=== PATIENT | male | born 1960 | race Caucasian/White ===

== ENCOUNTER → 2022-06-01 | Outpatient (CLI) | payer OTHER, SELFPAY ==
--- NOTE | 2022-06-01 11:00 | PROSBIL_PTH ---
PATIENT: MONIKA CAIN LOC: [facility] U#:[id number] AGE/SX: 61/M ROOM: RE06/01/[address]: Dr. Hussein Thomas MD : 1960 BED: DIS: 06/01/2022 SPEC #: [id number] RECD: 06/02/22 08:09 STATUS: ANA MARIA FATUMA #: [id number] GRISELDA: 06/01/22 11:[address]: Hussein Thomas DEPT: SURGICAL PATHOLOGY RECD BY: Brittany Lamb Tissues: A - PROSTATE RIGHT B - PROSTATE RIGHT C - PROSTATE RIGHT D - PROSTATE LEFT E - PROSTATE LEFT F - PROSTATE LEFT Procedures: PROSTATE BX HEADER OPERATION: Prostate biopsy PRE-OP DIAGNOSIS: R97.20 TISSUE SUBMITTED: A-Right apex, B-Right mid, C-Right base, D-Left apex, E-Left mid, F-Left base MICROSCOPIC DIAGNOSIS A- Prostate, right apex, core biopsy: Prostatic adenocarcinoma. Mohinder grade: 3+3 =6 Number of cores involved: 1/1 Proportion of tissue involved: 80 % Perineural invasion: Not identified. Greatest tumor length: 0.6 cm B- Prostate, right mid, core biopsy: Prostatic adenocarcinoma. Mohinder grade: 3+3 =6 Number of cores involved: 2/2 Proportion of tissue involved: 60 % Perineural invasion: present, focal. Greatest tumor length: 0.6 cm C- Prostate, right base, core biopsy: Prostatic tissue, negative for malignancy. D- Prostate, left apex, core biopsy: Prostatic tissue, negative for malignancy. E- Prostate, left mid, core biopsy: Focal high-grade prostatic intraepithelial neoplasia (HGPIN). Focal atrophy and chronic inflammation. F- Prostate, left base, core biopsy: Prostatic tissue, negative for malignancy. ANDREW 06/03/22 COMMENT Case has been reviewed in consultation with Dr. Kim who concurs with the above diagnosis. IDC:AM MICROSCOPIC DESCRIPTION Slides are reviewed. GROSS DESCRIPTION A - Received is one container designated prostate, right apex. The specimen consists of one elongated fragments of light bolden-white soft tissue each measuring 1.0 cm in length and 0.1 cm in diameter. The specimen is totally submitted in one cassette. B - Received is one container designated prostate, right mid. The specimen consists of two elongated fragments of light bolden-white soft tissue measuring 1 and 2.0 cm in length and 0.1 cm in diameter. The specimen is totally submitted in one cassette. C - Received is one container designated prostate, right base. The specimen consists of one elongated fragments of light bolden-white soft tissue measuring 1.5 cm in length and 0.1 cm in diameter. The specimen is totally submitted in one cassette. D - Received is one container designated prostate, left apex. The specimen consists of one elongated fragments of light bolden-white soft tissue measuring 1.0 cm in length and 0.1 cm in diameter. The specimen is totally submitted in one cassette. E - Received is one container designated prostate, left mid. The specimen consists of two elongated fragments of light bolden-white soft tissue measuring 1 and 1.5 cm in length and 0.1 cm in diameter. The specimen is totally submitted in one cassette. F - Received is one container designated prostate, left base. The specimen consists of one elongated fragments of light bolden-white soft tissue measuring 1.3 cm in length and 0.1 cm in diameter. The specimen is totally submitted in one cassette. / SJ:cc 06/02/22 TC:0 CPT: 77615 x6 ADDENDUM ADDENDUM ADDENDUM ADDENDUM ADDENDUM ADDENDUM ADDENDUM ADDENDUM 07/27/2022 09:59 ADDENDUM 07/27/2022 09:59 ADDENDUM 07/27/2022 09:59 ADDENDUM 07/27/2022 09:59 ADDENDUM 07/27/2022 09:59 An order for Oncotype testing was received from Dr. Thomas. This necessitated case review, block and slide selection by pathologist at [facility]. Genomic Prostate Score = 47 Results of the complete Oncotype testing ([employer] report) are viewable in EMR under: Reports - Pathology - Lab Pathology Report, Scanned.
== END | disposition home or self-care (01) ==
LOC: LABSPEC 16:20
PROVIDERS: Referring Provider Urology; Visit Provider Urology
DX: C61 Malignant neoplasm of prostate (principal)
CPT/HCPCS: 88305; G0416

== ENCOUNTER → 2022-08-05 | Outpatient (CLI) | payer OTHER, SELFPAY ==
--- NOTE | 2022-08-05 12:21 | MRI_ITS ---
PROSTATE MRI HISTORY/INDICATION: Malignant neoplasm of the prostate TECHNIQUE: Multiplanar, multisequence imaging of the pelvis in accordance with PIRADS recommendations before and after intravenous administration of 13 mL Clariscan on a 1.5 TE platform using external phased array coil. Dedicated 3 plane small field of view T2 FSE, axial diffusion-weighted imaging with width B values 50-800 s/mm2 and calculated t=4865 s/mm2 and ADC map; and axial 3-D dynamic contrast enhanced T1 weighted images with temporal resolution in 3 mm slice thickness in addition to full pelvis postcontrast T1-weighted imaging. COMPARISON:None FINDINGS: Size: 2.6 x 4.6 x 3.1 (Lx W x H) cm for 20 cubic cm. Quality: Excellent Hemorrhage: None Peripheral zone: Slightly heterogeneous high signal. Focal finding as below. Transition zone: Moderate heterogeneity consistent with prostatic hyperplasia. Lesion #1: Location: right apical peripheral zone anterior on series 19 image 6, axial T2 Size: 5.5 x 8.9 mm T2: homogeneous, moderately hypointense without extraprostatic extension, sequence category 4/5 DWI: focal markedly hyperintense (image 13 series 800/801) on high b-value DWI and markedly hypointense on ADC without extraprostatic extension, sequence category 4/5 DCE: No early enhancement, negative Prostate margin: gross extraprostatic extension anteriorly Lesion overall PI-RADS: 4/5 Neurovascular bundles: Not involved Seminal vesicles: not involved Lymph nodes: no lymphadenopathy Bones: no osseous metastases suggested Other pelvic organs: normal MRI/Pelvis W/WO Contrast IMPRESSION: 1. PI-RADS 4 - High (clinically significant cancer is likely to be present). PI?RADSR v2.1 Assessment Categories PI-RADS 1 ? Very low (clinically significant cancer is highly unlikely to be present) PI-RADS 2 ? Low (clinically significant cancer is unlikely to be present) PI-RADS 3 ? Intermediate (the presence of clinically significant cancer is equivocal) PI-RADS 4 ? High (clinically significant cancer is likely to be present) PI-RADS 5 ? Very high (clinically significant cancer is highly likely to be present) Electronically Signed: Adolfo Paez (Brooks), at 15:49 EDT Reading Location ID and State: [place] , Service support ,
[2022-08-05 13:11] LABS: CREATININE FINGERSTICK < 0.9 mg/dL (0.70-1.30); EGFR FINGERSTICK > 60.0000 mL/min (>60)
== END | disposition home or self-care (01) ==
PROVIDERS: PCP Physician Assistant; Visit Provider Urology
DX: C61 Malignant neoplasm of prostate (principal)
CPT/HCPCS: 72197; A9575

== ENCOUNTER 2022-08-12 10:58 | Observation (INO) | payer OTHER, SELFPAY ==
[2022-08-05 13:35] LABS: Hematocrit 44.4 % (40-54); Hemoglobin 15.7 g/dL (13.0-16.5); Mean Corp Hgb Conc 35.4 g/dL (32-36); Mean Corpuscular Hgb 34.5 pg (27.0-32.0); Mean Corpuscular Volume 97.6 fL (80-94); Mean Platelet Vol. 10.6 fl (6.2-12.0); Platelet Count 298 K/mm3 (150-450); RBC Distribution Width CV 12.1 % (11.6-14.6); RBC Distribution Width SD 44.1 fl (35.1-43.9); Red Blood Count 4.55 M/mm3 (4.6-6.2)
--- NOTE | 2022-08-10 15:41 | EKG12_ITS ---
Test Reason : PRE-OP Blood Pressure : / mmHG Vent. Rate : 083 BPM Atrial Rate : 083 BPM P-R Int : 132 ms QRS Dur : 084 ms QT Int : 346 ms P-R-T Axes : 073 068 064 degrees QTc Int : 406 ms Normal sinus rhythm Normal ECG Confirmed by AYESHA ROJAS, JV ([id number]), video news editor LUCY VÁSQUEZ ([id number]) on 08/11/2022 6:19:02 AM Referred By: Hussein Thomas Confirmed By:JV HODGE MD
[2022-08-12] VITALS (14 sets, daily range): BP systolic 116–158; BP diastolic 40–88; PULSE 77–92; RESP 16–18; TEMP 36.3–36.9; O2SAT 95–100; BMI 21.1
--- NOTE | 2022-08-12 | PROST_PTH ---
PATIENT: MONIKA CAIN LOC: [facility] U#:[id number] AGE/SX: 61/M ROOM: [facility] RE08/12/[address]: Dr. Hussein Thomas MD : 1960 BED: 1 DIS: 08/13/2022 SPEC #: [id number] RECD: 08/12/22 13:13 STATUS: ANA MARIA BURRIS #: [id number] GRISELDA: 08/12/22 00:[address]: Hussein Thomas DEPT: SURGICAL PATHOLOGY RECD BY: Jaret Monroe ENTERED: 08/13/22 08:42 SP TYPE: PROSTATE OTHR DR: CHARLES Mendes Tissues: A - Lymph node of pelvis, NOS B - Prostate, NOS Procedures: Surgery Specimen Level V HEADER OPERATION: Lap robotic radical prostatectomy with nerve sparing PRE-OP DIAGNOSIS: Malignant neoplasm of prostate TISSUE SUBMITTED: A ? Fat over prostate and lymph nodes, B - Prostate MICROSCOPIC DIAGNOSIS A. Fat over prostate and lymph nodes, regional lymphadenectomy and fat excision: Mature adipose tissue, negative for carcinoma. Minute fragment of benign lymphoid tissue. B. Prostate, radical prostatectomy: Adenocarcinoma. See cancer synoptic report below. AM:hui 08/14/2022 COMMENT B. PROSTATE CANCER (RADICAL) SUMMARY: Procedure: Radical Prostatectomy Prostate Size: Weight: 51.8 gm Size: 5 x 3.5 x 3 cm Histologic Type: Adenocarcinoma Histologic Grade: Bapchule grade 6 (3+3) Percent of Pattern 4: 0 Percent of Pattern 5: 0 Intraductal Carcinoma: Not identified Tumor Quantitation: 1.8 x 1.7 x 1.5 cm Extraprostatic Extension: Not identified Urinary Bladder Neck Invasion: Not identified Seminal Vesicle Invasion: Not identified Lymphvascular Invasion: Not identified Perineural Invasion: Present, focal Margins: Free of carcinoma Regional Lymph Nodes: See specimen A Treatment Effect: Unknown Additional Pathologic Findings: Chronic inflammation and benign hyperplasia. PATHOLOGIC STAGE: T2 Nx Mx The above summary is in compliance with [employer] (CAP) Cancer Protocols Checklist and [place] Joint Committee on Cancer (AJCC), Staging Manual, 8th Ed. MICROSCOPIC DESCRIPTION Slides are reviewed. GROSS DESCRIPTION A - Received in fixative is one container labeled with the patient's name and designated fat over prostate and lymph nodes. The specimen consists of a single irregular fragment of yellow fatty tissue measuring 2.8 x 2 x 1 cm. The specimen is serially sectioned and totally submitted in one cassette. B - Received in fixative is one container labeled with the patient's name and designated prostate. The specimen consists of a prostate gland with attached seminal vesicles weighing 51.8 gm. The gland measures 5 cm transversely, 3.5 cm anterior-posteriorly and 3 cm craniocaudally. On palpitation, no mass lesions are identified. The specimen is differentially inked as follows: entire posterior surface of prostate and seminal vesicles - black, anterior prostate - red, right side of prostate and right seminal vesicle - blue, left side of prostate and left seminal vesicle - green. The gland is serially sectioned from apex to base at approximately 3 to 4 mm. No distinct mass lesion is identified. Journal[employer] Intern[employer] sections are submitted as follows: 1 - distal urethral margin, shave, 2 - bladder neck, shave, 3 - seminal vesicles, 4 - most basal section of prostate, 5-9 - apical portion of prostate, 10-13 - mid portion of prostate, 14-17 - basal portion of prostate. / AM:hui 08/13/2022 TC:0 CPT: 63108 x2
[2022-08-12] MEDS: Lactated Ringers 1,000 ML 15 ML IV ×2 (06:34→18:38)
[2022-08-12] MEDS: Cefazolin 2 GM in 0.9% Normal Saline 100 ML IV (07:29)
[2022-08-12] MEDS: Bupivacaine 0.25% 30 ML Vial (07:57)
[2022-08-12] MEDS: Lactated Ringers 1,000 ML 125 ML IV ×2 (09:15→18:45)
--- NOTE | 2022-08-12 10:59 | DCINST_ITS ---
Discharge Instructions Diet Discharge Diet: No restrictions, Light diet - advance as tolerated and Soft diet Activity Discharge Activity: Return to Normal Activity May resume sexual activity in: 6-8 weeks Dressing / Incision Call your doctor if your incision/area has: Continuous Slow Oozing and Sudden Increased Bleeding Cleanse incision/area with: Soap & Water and Normal Saline Catheter: Rachel to leg bag and Rachel to large bag Drain: [place] Follow Up Care Please Follow Up With: Hussein Thomas MD When: call for appt 2 weeks Test Results: Test results from this visit will be discussed in further detail at your follow- up appointment, if applicable. Discharge Plan Admission Primary Reason for Your Visit: Radical prostatectomy Attending Provider: Hussein Thomas Primary Care Provider: Jay Stone Instructions Patient Instructions: Radical Prostatectomy Dc Discharge Orders/Prescriptions Prescriptions: New ciprofloxacin HCl [Cipro] 500 mg tablet 500 mg PO DAILY Qty: 14 0RF docusate sodium [Colace] 100 mg capsule 100 mg PO BID Qty: 20 0RF oxycodone-acetaminophen 5-325 mg tablet 1 tab PO Q6H PRN (Reason: pain) 7 Days Qty: 14 0RF Other Ambulatory Orders: 12 Lead EKG (Routine) Timeframe: [id number] Location: None Selected Ordered By: Dr. Iván Thompson Referrals / Follow Up: Hussein Thomas MD [Med Staff - Active Staff] - Jay Stone PA [Primary Care Provider] - Disposition Disposition (needs filled in before D/C Order can be placed): Home, Self Care
--- NOTE | 2022-08-12 10:59 | PCM.HP.STD ---
HPI - General HPI Narrative MONIKA CAIN, is a 61 M who presents for radical prostatectomy for prostate cancer organ to do bilateral nerve sparing Miguelina risk of the procedure is loss of erections and bladder control problems afterwards. PFSH Medical History (Updated 08/12/22 @ 10:[address] Hussein Thomas MD) Cancer Injury of head and neck Prostate disease Smoker Wears glasses Home Medications ciprofloxacin HCl 500 mg tablet (Cipro) 500 mg PO DAILY #14 tabs 08/12/22 [Rx Last Taken Unknown] docusate sodium 100 mg capsule (Colace) 100 mg PO BID #20 caps 08/12/22 [Rx Last Taken Unknown] oxycodone-acetaminophen 5 mg-325 mg tablet 1 tab PO Q6H PRN pain 7 days #14 tabs 08/12/22 [Rx Last Taken Unknown] Allergy/AdvReac Type Severity Reaction Status Date / Time chloramphenicol Allergy PT UNSURE Verified 08/12/22 06:25 [From Chloromycetin] OF REACTION Surgical History (Updated 08/05/22 @ 10:45 by Viki Kim) History of surgery on lower extremity Hx of discectomy Hx of hand surgery Social History Smoking Status: Current every day smoker tobacco type: pipe Vital Signs Vital Signs Vital Signs: 08/12/22 06:26 08/12/22 06:26 Temperature 98.5 F Temperature Source Temporal Pulse Rate 77 Respiratory Rate 16 Respiratory Pattern Normal Blood Pressure 158/88 H Blood Pressure Mean 111 Blood Pressure Source Monitor Blood Pressure Position Semi-Fowlers Blood Pressure Location Right Arm Pulse Ox 100 Oxygen Delivery Method Room Air Weight Weight: 63 kg Body Mass Index (BMI) 21.1 Results Lab / Micro Data Result Diagrams: 08/05/22 12:23
--- NOTE | 2022-08-12 11:00 | OP.PCM_ITS ---
Report of Operation Date of Procedure: 08/12/22 Pre-Operative Diagnosis: Prostate cancer Post-Operative Diagnosis: The same Surgery/Procedure Performed:: Laparoscopic radical prostatectomy with bilateral nerve sparing Description of Surgical Findings:: Patient presented to the hospital for treatment of his prostate cancer with radical prostatectomy. In the preoperative setting we discussed the options of management for his prostate cancer including active surveillance, radiation treatments, radioactive seeds, and radical robotic prostatectomy. We discussed the side effects of surgery including the potential to lose erections. We di scussed the potential to have bladder control problems with stress incontinence which can be temporary or permanent. We discussed the risk of the surgery including the risk of general anesthetic, risk of bleeding, risk of infection, and risk of formation of hernia either incisional hernia or inguinal hernia. After long discussion with the patient the preoperative setting and also reviewed this in the preop area patient signed the consent form and we proceeded with a radical prostatectomy. Patient was taken back to the operating room he was identified, time out procedure was performed and he was placed supine on the table he underwent general anesthesia with intubation. The abdomen was shaved prepped and draped in usual sterile fashion as well as the penis and testicles. A 16 Mauritanian ca theter was placed into the bladder with clear return of urine. I then made an incision in the umbilicus and dissected down to the fascia advance a Veress needle into the peritoneal cavity and insufflated the peritoneal cavity with CO2 gas. I then placed a 12 mm trocar above the umbilicus. I then visualized the placement of the rest of the trochars, I placed a right arm robotic trocar, and air seal trocar, a suction port 5 mm trocar. And on the left side I placed 2 robotic arms. Once all the trochars were in placed the patient was put in steep Trendelenburg. And the robot was docked the arms were docked and then I placed the 0 degree camera through the robotic arm and also used a 30 degree camera during certain parts of the case. I used scissors in the right arm, prograsp in the third arm, and a bipolar in the second arm. Initial dissection was to free the sigmoid colon off the lateral wall this was done by meticulously dissecting off the peritoneum and the sigmoid colon off the left lateral wall. This then allowed the prograsp to retract the sigmoid colon out of the pelvis. I then went below the bladder and identified the vas deferens incised the peritoneum over the vas deferens and traced the vas deferens below the bladder to the prostate and identified the right and left vasa deferens. Below behind the vas deferens then the seminal vesicles were identified. I then dissected the seminal vesicle free using pinpoint electrocautery and then we identified the other seminal vesicle and then dissected this using pinpoint electrocautery I then elevated the vas deferens and several vesicles off the prostate and was able to sweep the Denonvilliers' fascia off the prostate posteriorly all the way up to the apex of the prostate. Working laterally I made sure I went as lateral as possible to sweep the Denonilliers' fascia off the posterior aspect of the prostate and worked my way back, I then transected the vas deferens and the left and right side the seminal vesicles were then dissected free. And then I pulled out of the pelvis. At this point the bladder was dropped creating the space of Retzius with the bladder on traction with the fourth arm. Using electro cautery I dissected in the anterior peritoneal fascia and then created the space of Retzius dissecting towards the prostate. The prostate was then cleaned of the fat over the prostate and the fourth arm was used to retract the bladder and place traction. I then identified the endopelvic fascia that was overlying the prostate on the right side I incised endopelvic fascia and wwept the levator muscles off the prostate all the way to the apex on the right side, I then worked my way anterior to the prostate then transected to the puboprostatic ligament and the underlying dorsal vein complex was not injured. I then went to the other side and identified the endopelvic fascia in the left side incised in a fashion the left side and swept the levator muscles off the prostate on the left side all the way up to the apex the puboprostatic ligament on the left side was then dissected and transected I then freed up the fascia overlying the dorsal vein complex. I then used the prograsp to encircled the dorsal vein complex with the prograsp and then switched over to the right and left needle nascar driver and suture ligated the dorsal vein complex above the prograsp. The prograsp was then placed back in the bladder and put back on traction I then identified the junction between the bladder and the prostate and dissected down between the bladder and the prostate untilI came across the catheter we then dissected posteriorly to the bladder and prostate to free the prostate and the bladder off each other and the muscles between the bladder and the prostate was then cauterized to free up the bladder. I then went on top of the prostate and identified the endopelvic fascia on top of the prostate this was incised all the way to the apex and then we swept the endopelvic fascia off the prostate laterally and then identified the plane between endopelvic fascia and the prosthetic pseudocapsule and swept the fascia laterally until reaching the course of the neurovascular bundles and then relea sed the neurovascular bundles off the prostate laterally all the way back in a retrograde fashion back to the junction of the pedicles then the prostate was placed on traction with the fourth arm pulling the prostate laterally identified the pedicle to the prostate between the seminal vesicles and the and the neurovascular bundle and this was taken using sequential small hemolocks. After the pedicle was taken the I then dissected underneath the prostate sweeping the neurovascular bundle off the prostate we able to follow the nice smooth plane between the neurovascular bundle and the pseudocapsule all the way to the apex once this was identified we swept this up all the way up to the apex and there was perfect nerve sparing on the right side. Then went to the left side the prostate identified the endopelvic fascia over the left side of the prostate I incised the endopelvic fascia all the way to the apex and then swept this off laterally I then released the neurovascular bundles on the left side of the prostate sweeping him off the prostate laterally I then elevated the prostate up up with the prostate and traction identified the pedicle to the prostate on the left side and then the pedicles taken with sequential Hem-o-suleiman clips I then was able to dissected the neurovascular bundle off the left posterior aspect the prostate this was a perfect dissection all the way up on the left side following the pseudocapsule all the way up the left side until we reached the apex of the prostate. After the both the neurovascular bundles has been swept off the posterior to the prostate I then went above and transected the dorsal vein complex there was minimal to no bleeding but then dissected down to the urethra and circumfencial dissected around the urethra I then switched the right and left arm with the needle drivers and I suture-ligated the dorsal vein complex again just to ensure that there was no bleeding from the dorsal vein complex. I then transected through the urethra with scissors and the prostate was then freed and released off the prostate bed and put an Endo Catch bag. At this point the bladder neck was reconstructed and then an anastomosis was performed between the prostate and the bladder with a 3 oh V-Loc stitch in a running fashion starting from the bladder neck at the 6 o'clock position working to the 12 o'clock position with continuous stitches to complete a perfect anastomosis between the bladder and the prostate. I then placed a new catheter into the bladder, an 18 [place]ian t[place] tip catheter flushed the bladder and there was no leakage from the anastomosis I put 10 cc in the balloon and pulled it up pulled back gently. I then ensured that there was no bleeding from the dorsal vein complex no bleeding from the neurovascular bundles FloSeal was placed as necessary once hemostasis was ensured and adequate then I placed the bladder back in position in the pelvis the prostate was exchanged to the camera port I closed the air seal port with a 10 12 Mike Hassan stitch. And the extracted the prostate through the umbilicus. The robot was undocked all the ports were removed under direct visualization then closed the extraction site with 0 Vicryl with a CT1 needle once the extraction site was closed. I then closed all the incision with subcuticular stitches with 4-0 Monocryl and then bandages were placed on the incisions catheter was flushed to make sure it was draining well there was no clots and it was crystal clear patient's anesthetic was reversed he was extubated and taken back to the PACU in stable condition all the needles and sponges and instruments were accounted for. Blood loss was minimal and the drain was a 18 Mauritanian Hartley catheter. No other surgical drain was left. I was present during the entire case. Surgeon: Hussein Thomas Type of Anesthesia: General Drains: hartely tule river tip Admit VTE Documentation VTE Present on Admission: No VTE Mechan Device Prophylaxis: SCD's VTE Pharm Prophylaxis ordered?: No
[2022-08-12] MEDS: Ketorolac 15 MG/ML Vial IV (12:15)
[2022-08-12] MEDS: Ciprofloxacin 400 MG/200 ML BAG 200 MG IV (15:20)
[2022-08-12] MEDS: Docusate Sodium 100 MG Capsule 200 MG PO (21:05)
[2022-08-13] MEDS: Lactated Ringers 1,000 ML 125 ML IV (03:18)
[2022-08-13] MEDS: Ciprofloxacin 400 MG/200 ML BAG 200 MG IV (03:19)
[2022-08-13 03:24] VITALS: BP 141/75; PULSE 85; RESP 16; TEMP 36.7; O2SAT 98
--- NOTE | 2022-08-13 07:43 | PCM.PN.GU ---
Subjective Subjective Status post radical prostatectomy did well overnight home today with a Rachel catheter the leg bag and large bag prescriptions were given instructions were given to patient Objective Data Objective Data Vital Signs: Vital Signs Temp Pulse Resp BP Pulse Ox O2 Del Method 98.0 F 85 16 141/75 H 98 Room Air 08/13/22 03:24 08/13/22 03:24 08/13/22 03:24 08/13/22 03:24 08/13/22 03:24 08/13/22 03:24 Oxygen Delivery Method Room Air Weight: 63 kg Body Mass Index (BMI) 21.1 Intake & Output: Intake and Output for Last 24 Hours 08/11/22 08/12/22 08/13/22 23:59 23:59 23:59 Intake Total 2710.0 / 2710.0 1225 / 1225 Output Total 650 / 650 1550 / 1550 Balance 2060.0 / 2060.0 -325 / -325 Lab / Micro Data Result Diagrams: 08/05/22 12:23
[2022-08-13 09:24] VITALS: BP 130/62; PULSE 89; RESP 16; TEMP 36.6; O2SAT 100
[2022-08-13] MEDS: Docusate Sodium 100 MG Capsule 200 MG PO (09:40)
== END 2022-08-13 11:30 | disposition home or self-care (01) ==
LOC: SDC 15:36 → MS3 15:36
PROVIDERS: Anesthesiology; Admitting Provider Urology; PCP Physician Assistant; Referring Provider Urology; Visit Provider Urology
PROC: 0VT04ZZ Resection of Prostate, Percutaneous Endoscopic Approach (ICD-10-PCS; CPT 55866; principal; 2022-08-12 07:10)
DX: C61 Malignant neoplasm of prostate (principal); F17.290 Nicotine dependence, other tobacco product, uncomplicated
CPT/HCPCS: 55866; 00865; 36415; 85027; 86850; 86900; 86901; 88307; 88309; 93005; 96361; 96365; 96366; 99218; 99251; 99406; J7120; G0378; G0463; J0744; J2405